=== PATIENT | male | born 1965 | race Caucasian/White ===

== ENCOUNTER → 2021-01-17 | Outpatient (CLI) | payer BC ==
[~2021-01-17] MED LIST: NORCO 5-325 TA1 EACH PO
[2021-01-17 19:03] LABS: HEMOGLOBIN 14.8 gm/dl (14.0-17.5); RED BLOOD COUNT 5.15 M/UL (4.20-5.50); WHITE BLOOD COUNT 6.4 K/UL (4.5-11.0)
[2021-01-17 19:34] LABS: BUN/CREATININE RATIO 19 (0-10)
== END ==
LOC: LAB 17:59
PROVIDERS: Family Medicine
DX: E78.5 Hyperlipidemia, unspecified (principal)
CPT/HCPCS: 80053; 80061; 85027